=== PATIENT | male | born 1995 | race Hispanic/Latino ===

== ENCOUNTER 2017-07-27 15:19 | Emergency (ER) | payer BC ==
[2017-07-27 15:34] VITALS: TEMP 98.7
--- NOTE | 2017-07-27 16:02 | ED PDOC ---
HPI: Head Injury Time Seen by Provider: 07/27/17 15:36 Chief Complaint (Nursing): Trauma Chief Complaint (Provider): Head injury History Per: Patient History/Exam Limitations: no limitations Injury Occurred (Timing): Just Before Arrival (30-40 min ago) Loss Of Consciousness: Unsure Additional Complaint(s): 22 year old male presents to the emergency department for evaluation of head injury sustained 30-40 minutes ago. Patient states he ran through a door, accidentally striking his head on the doorway. Initially he noticed blurred vision for 2-3 seconds, with questionable LOC, but reports he remembers all details of the event. Now complaining of a mild headache associated with some nausea and dizziness. No vomiting. Vision is normal currently. Patient also exhibited some speech abnormality just after the fall, as per a friend who witnessed the event, which has resolved. PMD: none Past Medical History Reviewed: Historical Data, Nursing Documentation, Vital Signs Vital Signs: Last Vital Signs Temp 98.7 F 07/27/17 15:29 Pulse 99 H 07/27/17 15:29 Resp 16 07/27/17 15:29 BP 149/96 H 07/27/17 15:29 Pulse Ox 100 07/27/17 15:29 - Medical History PMH: No Chronic Diseases - Family History Family History: States: No Known Family Hx - Living Arrangements Living Arrangements: With Friends/Others - Social History Current smoker - smoking cessation education provided: Yes (uses e-cigarettes) Alcohol: Social Drugs: Denies - Immunization History Hx Tetanus Toxoid Vaccination: Yes - Allergies Allergies/Adverse Reactions: Allergies Allergy/AdvReac Type Severity Reaction Status Date / Time No Known Allergies Allergy Verified 07/27/17 15:29 Review of Systems ROS Statement: Except As Marked, All Systems Reviewed And Found Negative Eyes: Positive for: Vision Change (blurred vision just after trauma, now resolved) Gastrointestinal: Positive for: Nausea. Negative for: Vomiting Neurological: Positive for: Change in Speech (slight abnormality in speech just after trauma, now resolved), Headache, Dizziness. Negative for: Weakness, Numbness, Incoordination, Altered Mental Status Physical Exam - Reviewed Nursing Documentation Reviewed: Yes Vital Signs Reviewed: Yes - Physical Exam Appears: Positive for: Non-toxic, No Acute Distress Head Exam: Positive for: NORMOCEPHALIC (with 3 mm superficial laceration to the anterior scalp, with minimal active bleeding) Skin: Positive for: Normal Color. Negative for: Rash Eye Exam: Positive for: Normal appearance, EOMI, PERRL Neck: Positive for: Painless ROM, Supple Cardiovascular/Chest: Positive for: Regular Rate, Rhythm Respiratory: Positive for: Normal Breath Sounds Extremity: Positive for: Normal ROM. Negative for: Calf Tenderness, Deformity Neurologic/Psych: Positive for: Alert, eyeglass frame truer II-XII (intact), Oriented (x3), Gait (steady). Negative for: Motor/Sensory Deficits, Aphasia, Facial Droop - ECG O2 Sat by Pulse Oximetry: 100 (RA) Pulse Ox Interpretation: Normal - Other Rad CT head X-Ray: Read By Radiologist X-Ray Interpretation: no acute finding Medical Decision Making Medical Decision Making: Impression: 22 year old with head injury Time: 15:56 Plan: Tylenol [address] Head W/O contrast CT head is negative. Patient reports improvement to headache s/p tylenol dose. Scalp abrasion is very superficial, no wound repair needed. Advised tylenol prn pain, ice to affected area and PMD follow up in 2-3 days. Patient is aware he can RTED at any time if acutely worse. Scribe Attestation: Documented by Kasey Cheema, acting as a scribe for Jessica Walton PA-C Provider Scribe Attestation: All medical record entries made by the Scribe were at my direction and personally dictated by me. I have reviewed the chart and agree that the record accurately reflects my personal performance of the history, physical exam, medical decision making, and the department course for this patient. I have also personally directed, reviewed, and agree with the discharge instructions and disposition. Disposition - Clinical Impression Clinical Impression: Head injury, Scalp abrasion - Patient ED Disposition Is Patient to be Admitted: No Counseled Patient/Family Regarding: Studies Performed, Diagnosis, Need For Followup - Disposition Referrals: [facility] [Outside] Disposition: Routine/Home Disposition Time: 17:59 Condition: STABLE Additional Instructions: Keep wound clean and dry. Ice affected areas off and is possible. Tylenol every 4-6 hours for pain as needed. Follow-up with primary doctor in 2-3 days or return to emergency room anytime if acutely worse. Instructions: Minor Head Injury, Skin Abrasions (DC) Forms: [employer] (Italian), [facility] ED School/Work Excuse
--- NOTE | 2017-07-27 17:47 | CT ---
PROCEDURE: CT HEAD WITHOUT CONTRAST. HISTORY: Trauma COMPARISON: None available. TECHNIQUE: Axial computed tomography images were obtained through the head/brain without intravenous contrast. Radiation dose: Total exam DLP = 877.62 mGy-cm. This CT exam was performed using one or more of the following dose reduction techniques: Automated exposure control, adjustment of the mA and/or kV according to patient size, and/or use of iterative reconstruction technique. FINDINGS: HEMORRHAGE: No intracranial hemorrhage. BRAIN: Porter-white matter differentiation is preserved. There is no mass, mass effect or abnormal extra-axial fluid collection. There is no territorial infarction. VENTRICLES: The ventricles are normal in size, shape and configuration. CALVARIUM: There is no calvarial fracture. There is mild frontal soft tissue swelling. PARANASAL SINUSES: There is mild mucosal thickening in the right maxillary sinus. The remaining included paranasal sinuses are predominantly clear. MASTOID AIR CELLS: Predominantly clear. OTHER FINDINGS: None. IMPRESSION: No acute intracranial abnormality.
[2017-07-27 18:09] VITALS: BP 128/78; PULSE 82; RESP 18; O2SAT 100
== END 2017-07-27 18:09 | disposition home or self-care (01) ==
LOC: H.ER 15:19
DX: S09.0XXA Injury of blood vessels of head, not elsewhere classified, initial encounter (principal); S00.01XA Abrasion of scalp, initial encounter; W22.8XXA Striking against or struck by other objects, initial encounter; Y92.89 Other specified places as the place of occurrence of the external cause